=== PATIENT | female | born 1980 | race Caucasian/White ===

== ENCOUNTER 2017-07-18 19:07 | Emergency (ER) | payer BC, OTHER ==
[~2017-07-18] VITALS: Ht 165.1 cm; Wt 68.0 kg
--- NOTE | 2017-07-18 19:10 | NUR ---
BIBRA FROM HOME DUE SEVERE HEADACHE, MOSTLY ON RIGHT SIDE, 10/10, SHOOTING, ACHING,, PER PATIENT IT WAS AGGREVATED DURING SEXUAL INTERCOURSE., PATIENT APPEARS ANXIOUS. VSS
--- NOTE | 2017-07-18 19:17 | NUR ---
MD VANESSA AT BEDSIDE
[2017-07-18] MEDS ORDERED: ONDANSETRON 4 MG TAB.RAPDIS ONE (19:27)
[2017-07-18] MEDS ORDERED: METOCLOPRAMIDE HCL 10 MG/2 ML VIAL ONE (19:27)
[2017-07-18] MEDS ORDERED: METOCLOPRAMIDE HCL 10 MG/2 ML VIAL IV ONE (19:30)
[2017-07-18] MEDS ORDERED: ONDANSETRON 4 MG TAB.RAPDIS PO ONE (19:30)
[2017-07-18] MEDS ORDERED: IV NS 0.9% 1,000 ML BAG IV ONE (19:30)
[2017-07-18 19:56] LABS: BASOPHILS # (AUTO) 0.1 /CMM (0.0-0.2); BASOPHILS % (AUTO) 0.8 % (0.0-2.0); EOSINOPHILS # (AUTO) 0.4 /CMM (0.0-0.7); EOSINOPHILS % (AUTO) 4.6 % (0.0-6.0); HEMATOCRIT 37 % (33-45); HEMOGLOBIN 12.6 g/dL (11.5-14.8); LYMPHOCYTES # (AUTO) 2.6 /CMM (0.8-4.8); MEAN CORPUSCULAR HEMOGLOBIN 28 PG (26.0-33.0); MEAN CORPUSCULAR HGB CONC 34 g/dl (31.0-36.0); MEAN CORPUSCULAR VOLUME 81 fL (82-100); MONOCYTES # (AUTO) 0.7 /CMM (0.1-1.30); MONOCYTES % (AUTO) 8.2 % (2.0-12.0); NEUTROPHILS # (AUTO) 5.1 /CMM (1.8-8.9); NEUTROPHILS % (AUTO) 57.4 % (43.0-81.0); PLATELET COUNT (AUTO) 359 /CMM (150-450); RDW COEFFICIENT OF VARIATION 13.1 (11.5-15.0); RED BLOOD CELL COUNT(AUTO) 4.53 MIL/uL (4.0-5.2); WHITE BLOOD COUNT (AUTO) 8.9 K/uL (4.3-11.0)
[2017-07-18 20:03] LABS: INR 0.95 (0.87-1.13); PROTHROMBIN TIME 9.9 SECS (9.5-12.7)
[2017-07-18 20:04] LABS: CALCIUM, SERUM 8.6 mg/dL (8.5-10.1); CREATININE 0.8 mg/dL (0.6-1.3); POTASSIUM 3.9 mmol/L (3.5-5.1)
[2017-07-18] MEDS ORDERED: HYDROCODONE/APAP 10/325MG 1 EA TABLET ONE ×2 (20:24→21:33)
[2017-07-18] MEDS ORDERED: HYDROCODONE/APAP 10/325MG 1 EA TABLET PO ONE ×2 (20:30→21:30)
[2017-07-18 21:36] VITALS: BP 135/85
--- NOTE | 2017-07-18 21:38 | NUR ---
Patient discharged to home in stable condition. Written and verbal after care instructions given. Patient verbalizes understanding of instruction. IV removed. Catheter intact and site benign. Pressure and 4x4 applied to site. No bleeding noted. Prescription given.
== END 2017-07-18 21:37 | disposition home or self-care (01) ==
LOC: ER 19:08
DX: R51 Headache (principal); R79.1 Abnormal coagulation profile; F43.10 Post-traumatic stress disorder, unspecified; M79.7 Fibromyalgia; Z87.19 Personal history of other diseases of the digestive system
CPT/HCPCS: 36415; 70450-TC; 80048-TC; 84703-TC; 85025-TC; 85730-TC; A4606; J2765; J7030; Q0162; Z7610

== ENCOUNTER 2017-08-17 11:12 | Emergency (ER) | payer OTHER, BC ==
[~2017-08-17] VITALS: Ht 165.1 cm; Wt 85.3 kg
--- NOTE | 2017-08-17 11:16 | NUR ---
PT BIB FAMILY TO ER BED 12. C/O HEADACHE ABDOMINAL PAIN W/ N/V SINCE LAST NIGHT. STATES HAS FIBROMYALGIA, WAS SEEN AT DIFFERENT HOSPITAL FOR A "BURST BLOOD VESSEL IN THE HEAD." GOWNED AND PLACED ON MONITOR. TACHY OTHERWISE STABLE. AWAITING MD GIRON.
[2017-08-17] MEDS ORDERED: ONDANSETRON HCL/PF 4 MG/2 ML VIAL ONE (11:28)
[2017-08-17] MEDS ORDERED: MAG HYDROX/AL HYDROX/SIMETH 30 ML UDC ONE (11:28)
[2017-08-17] MEDS ORDERED: IV NS 0.9% 1,000 ML BAG IV ONE (11:30)
[2017-08-17] MEDS ORDERED: MAG HYDROX/AL HYDROX/SIMETH 30 ML UDC PO ONE (11:30)
[2017-08-17] MEDS ORDERED: ONDANSETRON HCL/PF 4 MG/2 ML VIAL IVP ONE (11:30)
--- NOTE | 2017-08-17 11:30 | NUR ---
IV LINE STARTED BLOOD DRAWN AND SENT TO LAB.
[2017-08-17 11:39] LABS: BASOPHILS % (AUTO) 0.5 % (0.0-2.0); EOSINOPHILS # (AUTO) 0.1 /CMM (0.0-0.7); EOSINOPHILS % (AUTO) 1.4 % (0.0-6.0); HEMATOCRIT 38 % (33-45); HEMOGLOBIN 12.8 g/dL (11.5-14.8); LYMPHOCYTES # (AUTO) 3.5 /CMM (0.8-4.8); LYMPHOCYTES % (AUTO) 32.2 % (20.0-44.0); MEAN CORPUSCULAR HEMOGLOBIN 27 PG (26.0-33.0); MEAN CORPUSCULAR HGB CONC 34 g/dl (31.0-36.0); MEAN CORPUSCULAR VOLUME 80 fL (82-100); MONOCYTES # (AUTO) 0.8 /CMM (0.1-1.30); MONOCYTES % (AUTO) 7.7 % (2.0-12.0); NEUTROPHILS # (AUTO) 6.2 /CMM (1.8-8.9); NEUTROPHILS % (AUTO) 58.2 % (43.0-81.0); PLATELET COUNT (AUTO) 430 /CMM (150-450); RDW COEFFICIENT OF VARIATION 13.8 (11.5-15.0); RED BLOOD CELL COUNT(AUTO) 4.78 MIL/uL (4.0-5.2); WHITE BLOOD COUNT (AUTO) 10.7 K/uL (4.3-11.0)
--- NOTE | 2017-08-17 11:40 | NUR ---
DR RODRÍGUEZ AT BEDSIDE FOR EVAL.
[2017-08-17 11:55] LABS: ALBUMIN 3.9 g/dL (3.4-5.0); BILIRUBIN,DIRECT 0.1 mg/dL (0.0-0.2); BILIRUBIN,TOTAL 0.2 mg/dL (0.2-1.0); CALCIUM, SERUM 9.2 mg/dL (8.5-10.1); CREATININE 0.9 mg/dL (0.6-1.3); POTASSIUM 3.3 mmol/L (3.5-5.1); TOTAL PROTEIN, SERUM 8.4 g/dL (6.4-8.2)
--- NOTE | 2017-08-17 12:33 | NUR ---
Patient does not wish to proceed with medical care recommended by Dr. Woodruff. Patient given information related to possible complications, up to and including , which could occur as a result of leaving the hospital at this time. Patient verbalizes understanding of risks involved due to leaving against medical advice. Patient has signed AMA form.
[2017-08-17 12:36] VITALS: BP 128/87
== END 2017-08-17 12:39 | disposition left against medical advice (07) ==
LOC: ER 11:13
DX: R51 Headache (principal); R11.2 Nausea with vomiting, unspecified; F19.10 Other psychoactive substance abuse, uncomplicated; F43.10 Post-traumatic stress disorder, unspecified; K21.9 Gastro-esophageal reflux disease without esophagitis; M79.7 Fibromyalgia; Z87.19 Personal history of other diseases of the digestive system; Z53.20 Procedure and treatment not carried out because of patient's decision for unspecified reasons
CPT/HCPCS: 36415; 80048-TC; 80076-TC; 83690-TC; 85025-TC; A4606; J2405; J7030; Z7610

== ENCOUNTER 2018-11-14 14:03 | Emergency (ER) | payer MEDICARE, BC, MEDICAID ==
[~2018-11-14] VITALS: Ht 162.6 cm; Wt 53.5 kg
--- NOTE | 2018-11-14 14:07 | NUR ---
PT CAME FROM URGENT CARE BY [facility] FOR NAUSEA AND VOMITING. P ALERT WITH ORIENTATION X 4
[2018-11-14] MEDS ORDERED: IV NS 0.9% 1,000 ML BAG IV ONE (14:30)
[2018-11-14] MEDS ORDERED: ONDANSETRON HCL/PF 4 MG/2 ML VIAL IVP ONE (14:30)
[2018-11-14] MEDS ORDERED: ONDANSETRON HCL/PF 4 MG/2 ML VIAL ONE (14:38)
[2018-11-14 14:48] LABS: BASOPHILS # (AUTO) 0.1 /CMM (0.0-0.2); BASOPHILS % (AUTO) 1.2 % (0.0-2.0); EOSINOPHILS % (AUTO) 0.2 % (0.0-6.0); HEMATOCRIT 48 % (33-45); HEMOGLOBIN 15.1 g/dL (11.5-14.8); LYMPHOCYTES # (AUTO) 2.6 /CMM (0.8-4.8); LYMPHOCYTES % (AUTO) 21.1 % (20.0-44.0); MEAN CORPUSCULAR HGB CONC 31 g/dl (31.0-36.0); MEAN CORPUSCULAR VOLUME 72 fL (82-100); MONOCYTES # (AUTO) 0.8 /CMM (0.1-1.30); MONOCYTES % (AUTO) 6.6 % (2.0-12.0); NEUTROPHILS # (AUTO) 8.8 /CMM (1.8-8.9); NEUTROPHILS % (AUTO) 70.9 % (43.0-81.0); PLATELET COUNT (AUTO) 437 /CMM (150-450); RED BLOOD CELL COUNT(AUTO) 6.73 MIL/uL (4.0-5.2); WHITE BLOOD COUNT (AUTO) 12.4 K/uL (4.3-11.0)
[2018-11-14 14:55] LABS: CALCIUM, SERUM 8.9 mg/dL (8.5-10.1); CREATININE 1.1 mg/dL (0.6-1.3); POTASSIUM 3.8 mmol/L (3.5-5.1)
[2018-11-14 15:01] LABS: ALBUMIN 3.6 g/dL (3.4-5.0); BILIRUBIN,DIRECT 0.2 mg/dL (0.0-0.2); BILIRUBIN,TOTAL 0.7 mg/dL (0.2-1.0); TOTAL PROTEIN, SERUM 7.7 g/dL (6.4-8.2)
--- NOTE | 2018-11-14 16:15 | NUR ---
PT PIV REMOVED WITH TIP INTACT DISCHARGED WITH ACI AND PRESCRIPTION PT WALKED WITH STEADY GAIT STATES THAT SHE SMOKES ICE
[2018-11-14 16:16] VITALS: BP 139/107
== END 2018-11-14 16:19 | disposition home or self-care (01) ==
LOC: ER 14:06
DX: T24.231A Burn of second degree of right lower leg, initial encounter (principal); T24.111A Burn of first degree of right thigh, initial encounter; R11.2 Nausea with vomiting, unspecified; F19.10 Other psychoactive substance abuse, uncomplicated; F15.10 Other stimulant abuse, uncomplicated; F43.10 Post-traumatic stress disorder, unspecified; M79.7 Fibromyalgia; F31.9 Bipolar disorder, unspecified; F10.10 Alcohol abuse, uncomplicated; R00.0 Tachycardia, unspecified; Y90.9 Presence of alcohol in blood, level not specified; X08.8XXA Exposure to other specified smoke, fire and flames, initial encounter; Y93.89 Activity, other specified; Y92.89 Other specified places as the place of occurrence of the external cause; Y99.8 Other external cause status
CPT/HCPCS: 36415; 80048; 80076; 83690; 84484; 84702; 85025; 93005; 96361; 96374; 99284; A4606; J2405; J7030

== ENCOUNTER 2018-12-15 00:03 | Emergency (ER) | payer MEDICARE, BC, OTHER ==
[~2018-12-15] VITALS: Ht 162.6 cm; Wt 81.6 kg
--- NOTE | 2018-12-15 00:15 | NUR ---
PT BIBSELF C/O ABD PAIN WITH N/V, PATIENT STATES SHE IS VOMITING BLOOD X 1 WEEK. PATIENT STATES SHE HAS STOMACH ULCERS AND SEEN AT ANOTHER ER. PT AOX4. RESP EVEN AND UNLABORED. PT ON MONITOR IN BED 12 WITH BOYFRIEND AT BEDSIDE. WILL CONTINUE TO MONITOR.
--- NOTE | 2018-12-15 00:22 | NUR ---
PT REFUSING TO GIVE URINE
--- NOTE | 2018-12-15 00:25 | NUR ---
PT PROVIDED URINE SAMPLE
--- NOTE | 2018-12-15 00:50 | NUR ---
PHLEB AT BEDSIDE FOR LAB DRAW
[2018-12-15 01:02] LABS: BASOPHILS # (AUTO) 0.1 /CMM (0.0-0.2); BASOPHILS % (AUTO) 0.7 % (0.0-2.0); HEMATOCRIT 46 % (33-45); HEMOGLOBIN 14.7 g/dL (11.5-14.8); LYMPHOCYTES # (AUTO) 2.8 /CMM (0.8-4.8); LYMPHOCYTES % (AUTO) 28.8 % (20.0-44.0); MEAN CORPUSCULAR HGB CONC 32 g/dl (31.0-36.0); MEAN CORPUSCULAR VOLUME 71 fL (82-100); MONOCYTES # (AUTO) 0.7 /CMM (0.1-1.30); MONOCYTES % (AUTO) 7.6 % (2.0-12.0); NEUTROPHILS % (AUTO) 61.9 % (43.0-81.0); PLATELET COUNT (AUTO) 307 /CMM (150-450); RED BLOOD CELL COUNT(AUTO) 6.48 MIL/uL (4.0-5.2); WHITE BLOOD COUNT (AUTO) 9.7 K/uL (4.3-11.0)
[2018-12-15 01:09] LABS: CALCIUM, SERUM 8.6 mg/dL (8.5-10.1); CREATININE 1.2 mg/dL (0.6-1.3); POTASSIUM 3.5 mmol/L (3.5-5.1)
[2018-12-15] MEDS ORDERED: PANTOPRAZOLE 40 MG VIAL ONE (01:11)
[2018-12-15] MEDS ORDERED: SUCRALFATE 1 G/10 ML UDC ONE (01:11)
[2018-12-15] MEDS ORDERED: LORAZEPAM INJ 2 MG/ML VIAL ONE (01:12)
[2018-12-15 01:15] LABS: ALBUMIN 3.5 g/dL (3.4-5.0); BILIRUBIN,DIRECT 0.2 mg/dL (0.0-0.2); BILIRUBIN,TOTAL 0.5 mg/dL (0.2-1.0); TOTAL PROTEIN, SERUM 6.8 g/dL (6.4-8.2)
[2018-12-15] MEDS: IV NS 0.9% 1,000 ML BAG IV ONE (01:23)
[2018-12-15] MEDS: LORAZEPAM INJ 2 MG/ML VIAL IV ONE (01:23)
[2018-12-15] MEDS: PANTOPRAZOLE 40 MG VIAL IV ONE (01:24)
[2018-12-15] MEDS: SUCRALFATE 1 G/10 ML UDC PO ONE (01:24)
[2018-12-15 01:35] VITALS: BP 137/106
--- NOTE | 2018-12-15 02:27 | NUR ---
IV removed. Catheter intact and site benign. Pressure and 4x4 applied to site. No bleeding noted.Patient discharged to home in stable condition. Written and verbal after care instructions given. Patient verbalizes understanding of instruction. PT AMBULATORY WITH STEADY GAIT.
== END 2018-12-15 02:31 | disposition home or self-care (01) ==
LOC: ER 00:07
DX: K27.9 Peptic ulcer, site unspecified, unspecified as acute or chronic, without hemorrhage or perforation (principal); R11.2 Nausea with vomiting, unspecified; F19.10 Other psychoactive substance abuse, uncomplicated; F15.10 Other stimulant abuse, uncomplicated; M79.7 Fibromyalgia; F43.10 Post-traumatic stress disorder, unspecified; F31.9 Bipolar disorder, unspecified; F10.10 Alcohol abuse, uncomplicated; Y90.9 Presence of alcohol in blood, level not specified; Z60.2 Problems related to living alone; Z98.890 Other specified postprocedural states
CPT/HCPCS: 36415; 71045; 74021; 80048; 80076; 83690; 85025; 85730; 96361; 96374; 96375; 99284; A4606; C9113; J2060; J7030